=== PATIENT | male | born 2000 | race Caucasian/White ===

== ENCOUNTER 2023-03-01 09:30 | Emergency (ER) | payer OTHER, SELFPAY ==
--- NOTE | ~2023-03-01 | XR_ITS ---
EXAMINATION: XR hand LT min 3V INDICATION: Right hand pain TECHNIQUE: Three views of the right hand are obtained. COMPARISON: None available FINDINGS: Bone alignment is normal. There is no fracture. The joint spaces are normal. There is dista l soft tissue swelling of the third and fourth fingers. IMPRESSION: 1. No acute osseous abnormality. Reviewed, dictated and finalized at location A.
[2023-03-01 09:30] VITALS: BP 141/80; PULSE 72; PULSE 76; RESP 18; TEMP 35.9; O2SAT 99
--- NOTE | 2023-03-01 09:53 | ED_ITS ---
HPI - Extremity Injury (Upper) General Chief Complaint: Extremity Injury, Upper Stated Complaint: left hand & finger injuries Time Seen by Provider: 03/01/23 09:39 History of Present Illness HPI narrative: 22-year-old male patient is here with injury to his left middle and ring finger tips for the lawnmower blade. 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 He wants to make sure that the bones are not broken. He does have pain to the fingertips only. No other injuries noted. Patient is generally in good health and takes no medications. Related Data Home Medications Medication Instructions Recorded Confirmed No Home Medications 03/01/23 03/01/23 Allergies Allergy/AdvReac Type Severity Reaction Status Date / Time Sulfa (Sulfonamide Allergy Unknown Unknown Verified 03/01/23 09:37 Antibiotics) Review of Systems Review of Systems: All systems reviewed & are unremarkable except as noted in HPI and below Exam Narrative: Alert healthy male who appears in no acute distress. Stable vital signs. Normal appearing HEENT. . No respiratory distress . Left hand is examined and the patient does have some bruising to the tip of middle and ring finger with some swelling noted as well to the volar aspect of the pulp and the tip of the finger. No hemorrhage it is under the nails. Skin is intact. Range of motion of the interphalangeal joints is intact. The rest of the head appears to be atraumatic. Rest of the physical examination is unremarkable. Course Course Emergency Course: Patient is advised to apply ice to the fingertips and take Tylenol or ibuprofen as needed for pain. Vital Signs Vital signs: Vital Signs Temperature 35.9 C L 03/01/23 09:30 Pulse Rate 72 03/01/23 09:30 Respiratory Rate 18 03/01/23 09:30 Blood Pressure 141/80 H 03/01/23 09:30 Pulse Oximetry 99 03/01/23 09:30 Oxygen Delivery Room Air 03/01/23 09:30 Temperature 35.9 C L 03/01/23 09:30 Pulse Rate 76 03/01/23 09:30 Respiratory Rate 18 03/01/23 09:30 Blood Pressure 141/80 H 03/01/23 09:30 Pulse Oximetry 99 03/01/23 09:30 Oxygen Delivery Room Air 03/01/23 09:30 Discharge Plan Discharge Prescriptions: No Action No Home Medications Follow-up/Referrals: Dave Ramirez M.D. [Primary Care Provider] -
== END 2023-03-01 10:08 | disposition home or self-care (01) ==
PROVIDERS: Emergency Provider Emergency Medicine; PCP Family Medicine
DX: S60.032A Contusion of left middle finger without damage to nail, initial encounter (principal); S60.042A Contusion of left ring finger without damage to nail, initial encounter; W22.8XXA Striking against or struck by other objects, initial encounter
CPT/HCPCS: 73130; 99283

== ENCOUNTER 2023-10-13 18:19 | Outpatient (CLI) | payer OTHER, SELFPAY ==
[2023-10-19 19:07] LABS: Calprotectin, Stool 338 mcg/g
== END 2023-10-13 18:20 | disposition home or self-care (01) ==
LOC: CHSLAB 18:23
DX: K51.20 Ulcerative (chronic) proctitis without complications (principal)
CPT/HCPCS: 83993